=== PATIENT | female | born 1980 | race Hispanic/Latino ===

== ENCOUNTER 2020-05-16 19:39 | Emergency (ER) | payer SELFPAY ==
[2020-05-16] MEDS ORDERED: diphenhydrAMINE 50 MG/ML VIAL ONE ×2 (20:12)
[2020-05-16] MEDS ORDERED: Acetaminophen 500 MG TAB ONE (20:12)
[2020-05-16] MEDS ORDERED: Metoclopramide 10 MG/10 ML UDCUP ONE (20:12)
[2020-05-16] MEDS ORDERED: Metoclopramide HCl 10 MG/2 ML VIAL ONE (20:13)
[2020-05-16] MEDS ORDERED: Magnesium 2 GM/50 ML 2 GM in Premix Bag 1 BAG IVPB SCH (20:30)
== END 2020-05-16 21:37 | disposition home or self-care (01) ==
LOC: ERS 19:39
DX: G43.909 Migraine, unspecified, not intractable, without status migrainosus (principal)
CPT/HCPCS: 70450; 96365; 96368; 96375; J1200; J2765; J3475